=== PATIENT | female | born 1945 | race Caucasian/White ===

== ENCOUNTER 2016-08-22 12:22 | Emergency (ER) | payer MEDICARE, BC ==
[2016-08-22 12:48] VITALS: BP 160/94
--- NOTE | 2016-08-22 13:14 | UC ---
Lower Extremity/Ankle HPI - HPI Summary HPI Summary: had been in [place] 2 weeks fell and hit left adams on some cobblestone, had some pain and swelling, then 2 days ago flew home, (7 hours) then a 2 [address] ride then a 5 hour car ride to get back to [place]---today has significant pain swelling and erythema in left lower leg - History of Current Complaint Chief Complaint: UCLowerExtremity Stated Complaint: LEG COMPLAINT Time Seen by Provider: 08/22/16 13:06 Hx Obtained From: Patient ?: No Onset/Duration: Gradual Onset, Lasting Days, Worse Since - yesterday Severity Initially: Moderate Severity Currently: Moderate Pain Intensity: 7 Pain Scale Used: 0-10 Numeric Aggravating Factor(s): Standing, Ambulation Able to Bear Weight: Yes - Allergies/Home Medications Allergies/Adverse Reactions: Allergies Allergy/AdvReac Type Severity Reaction Status Date / Time Codeine Allergy See Comment Verified 08/22/16 12:48 Home Medications: Home Medications Albuterol HFA INHALER* [Ventolin HFA Inhaler*] 2 puff INH Q4HR PRN 08/22/16 [ History Confirmed 08/22/16] Amlodipine Besylate [Norvasc 5 mg tab] 1 tab PO DAILY 08/22/16 [History Confirmed 08/22/16] Aspirin [Aspirin 81 MG TAB] 1 tab PO DAILY 08/22/16 [History Confirmed 08/22/16] Atenolol [Tenormin 25 MG] 0.5 tab PO DAILY 08/22/16 [History Confirmed 08/22/16] Cholecalciferol [Vitamin D] 1 tab PO BID 08/22/16 [History Confirmed 08/22/16] FLUoxetine CAP* [Prozac CAP*] 1 tab PO DAILY 08/22/16 [History Confirmed ] Fexofenadine HCl [Allergy 24-Hr] 1 tab PO DAILY 08/22/16 [History Confirmed ] Fluticasone-Salmeterol 500-50* [Advair Diskus 500-50*] 1 puff INH BID 08/22/16 [ History Confirmed 08/22/16] Phenylephrine-Chlorpheniramine [Sabiha-Bruno Plus Cold & 5-2-10-325 mg] 1 tab PO DAILY 08/22/16 [History Confirmed 08/22/16] Rosuvastatin Calcium 1 tab PO DAILY 08/22/16 [History Confirmed 08/22/16] Triamcinolone Acetonide (Nasal [Allergy Nasal [place] 24 Ho] 1 spray NASAL DAILY 08/22/16 [History Confirmed 08/22/16] PMH/Surg Hx/FS Hx/Imm Hx Cardiovascular History: Hypertension Respiratory History: Asthma Psychological History: Depression Cancer History: Breast Cancer - Surgical History Surgical History: Yes Surgery Procedure, Year, and Place: Bilateral Mastectomy; Hysterectomy; parathyroidectomy - Family History Known Family History: Positive: None Family History: no reported cardiovascular issues in family lineage - Social History Occupation: Retired Lives: With Family Alcohol Use: Occasionally Alcohol Amount: Socially Substance Use Type: None Smoking Status (MU): Never Smoked Tobacco Review of Systems Constitutional: Negative Skin: Bruising - left lower leg, Other - erythema--left lower leg Eyes: Negative ENT: Negative Respiratory: Negative Cardiovascular: Negative Gastrointestinal: Negative Genitourinary: Negative Motor: Negative Neurovascular: Negative Musculoskeletal: Negative, Calf Tenderness - left, Myalgia - left Neurological: Negative Psychological: Negative All Other Systems Reviewed And Are Negative: Yes Physical Exam Triage Information Reviewed: Yes Appearance: Well-Appearing, No Pain Distress, Well-Nourished Vital Signs: Initial Vital Signs Temp 99.5 F 08/22/16 12:41 Pulse 84 08/22/16 12:41 Resp 16 08/22/16 12:41 BP 160/94 08/22/16 12:41 Pulse Ox 96 08/22/16 12:41 Vital Signs Reviewed: Yes Eye Exam: Normal Eyes: Positive: Conjunctiva Clear ENT Exam: Normal ENT: Positive: Normal ENT inspection, Hearing grossly normal, Pharynx normal, TMs normal. Negative: Nasal congestion, Nasal drainage, Tonsillar swelling, Tonsillar exudate, Trismus, Muffled/hoarse voice Neck exam: Normal Neck: Positive: Supple, Nontender, No Lymphadenopathy Respiratory Exam: Normal Respiratory: Positive: Chest non-tender, Lungs clear, Normal breath sounds, No respiratory distress, No accessory muscle use Cardiovascular Exam: Normal Cardiovascular: Positive: RRR, No Murmur, Pulses Normal, Brisk Capillary Refill Musculoskeletal Exam: Other Musculoskeletal: Positive: Strength Intact, ROM Intact, Edema @ - left lower leg Neurological Exam: Normal Neurological: Positive: Alert, Muscle Tone Normal Psychological Exam: Normal Skin Exam: Normal Lower Extremity Course/Dx - Course Course Of Treatment: bactrim and keflex, elevated leg warm compress, follow with pcp - Differential Dx/Diagnosis Differential Diagnosis/HQI/PQRI: Cellulitis, Contusion, DVT, Fracture (Closed), Sprain, Strain Provider Diagnoses: Contusion/cellulitis left lower leg, hypertension-poor control Discharge - Discharge Plan Condition: Stable Disposition: HOME Prescriptions: Cephalexin CAP* [Keflex CAP*] 500 mg PO QID #28 cap Sulfamethox/Trimethoprim DS* [Bactrim DS 800/160 TAB*] 1 tab PO BID #20 tab Patient Education Materials: Cellulitis (ED), Contusion in Adults (ED), DASH Eating Plan (ED), Hypertension (ED), Warm Compress or Soak (ED) Referrals: Aryan Orozco MD [Primary Care Provider] - 2 Days
--- NOTE | 2016-08-22 14:38 | RAD ---
INDICATION: Pain and swelling. COMPARISON: None TECHNIQUE: Duplex interrogation of the Lowerextremity was performed. FINDINGS: Deep veins: The common femoral, great saphenous, profunda femoris, proximal, mid, and distal deep femoral, popliteal, posterior tibial, and peroneal veins are patent. There is normal compressibility, augmentation, and phasic flow. Superficial veins: There are no findings of superficial thrombophlebitis. Popliteal fossa:There is no evidence of a popliteal cyst. Soft tissues:There are no soft tissue abnormalities. IMPRESSION: Normal examination. No evidence of deep venous thrombosis
== END 2016-08-22 14:55 | disposition home or self-care (01) ==
LOC: UCEAST 12:22
DX: S80.12XA Contusion of left lower leg, initial encounter (principal); W19.XXXA Unspecified fall, initial encounter; Y93.9 Activity, unspecified; Y92.89 Other specified places as the place of occurrence of the external cause; L03.116 Cellulitis of left lower limb; I10 Essential (primary) hypertension; J45.909 Unspecified asthma, uncomplicated; F32.9 Major depressive disorder, single episode, unspecified; Z85.3 Personal history of malignant neoplasm of breast; Z90.13 Acquired absence of bilateral breasts and nipples; Z90.710 Acquired absence of both cervix and uterus; Z88.5 Allergy status to narcotic agent
CPT/HCPCS: 99202; G0463

== ENCOUNTER 2018-12-29 07:41 | Day surgery (SDC) | payer MEDICARE, BC ==
[~2018-12-29 07:41] MED LIST: Buffered Lidocaine 1% SYRIN* 1 ML/SYRINGE INTRADERM ONE; Dexamethasone IV* 4 MG/ML 1 ML (4 MG) ONE; Lactated Ringers 1000 ML Bag* 1,000 ML IV SCH; Ondansetron INJ* 2 MG/ML VIAL ONE; Scopolamine 1.5 mg* PATCH ONE; ceFAZolin 2 GM in NS PREMIX(*) 2 GM/100 ML BAG IVPB ONE
[2018-12-29] MEDS ORDERED: BSS OPTH.SOL* BTL ONE (09:24)
[2018-12-29] MEDS ORDERED: Artificial Tear OPHTH.OINT* 3.5 GM ONE (09:24)
[2018-12-29] MEDS ORDERED: Lidocaine 1% w EPI 1:100,000* MDV 20 ML VIAL ONE (09:25)
[2018-12-29] MEDS ORDERED: Naloxone* 0.4 MG/ML 1 ML VIAL IV PRN ×2 (09:32→11:25)
[2018-12-29] MEDS ORDERED: fentaNYL* 50 MCG/ML 2 ML VIAL (100 MCG VIAL) ONE (09:47)
[2018-12-29] MEDS ORDERED: Midazolam* 1 MG/ML 2 ML VIAL (2 MG) ONE ×2 (09:47→09:55)
[2018-12-29] MEDS ORDERED: Propofol* 10 MG/ML 20 ML BTL ONE (09:58)
[2018-12-29] MEDS ORDERED: Lidocaine 2% PF * 5 ML VIAL ONE (09:58)
[2018-12-29] MEDS ORDERED: Artificial Tears* 15 ML BTL ONE (11:02)
[2018-12-29 11:17] VITALS: BP 110/69
== END 2018-12-29 12:48 | disposition home or self-care (01) ==
LOC: OR 07:41
PROVIDERS: ATTEND Plastic Surgery
DX: C44.319 Basal cell carcinoma of skin of other parts of face (principal); I10 Essential (primary) hypertension; J45.909 Unspecified asthma, uncomplicated; I49.3 Ventricular premature depolarization; E78.00 Pure hypercholesterolemia, unspecified; G47.33 Obstructive sleep apnea (adult) (pediatric); Z85.3 Personal history of malignant neoplasm of breast
CPT/HCPCS: 88305; 88331; 88332; A9270-GY; J0690; J1100; J2250; J2405; J2704; J3010